=== PATIENT | female | born 1950 | race Two or more races ===

== ENCOUNTER 2024-05-27 19:15 | Emergency (ER) | payer OTHER ==
[~2024-05-27] VITALS: Ht 160 cm; Wt 52.2 kg
[2024-05-27] MEDS ORDERED: GLUMETZA1000 MG PO (19:28)
[2024-05-27] MEDS ORDERED: HUMULIN 70100 UNIT/2 IJ (19:28)
[2024-05-27] MEDS ORDERED: NEURONTIN800 MG PO (19:28)
[2024-05-27] MEDS ORDERED: SIMVASTATIN5 MG PO (19:29)
[2024-05-27] MEDS ORDERED: BENZONATATE 200 MG CAPSULE PO ONE (20:00)
[2024-05-27] MEDS ORDERED: CEFTRIAXONE SODIUM 1,000 MG VIAL IM ONE (20:00)
[2024-05-27] MEDS ORDERED: LEVALBUTEROL HCL 1.25 MG/3 ML SOLUTION IH ONE (20:00)
[2024-05-27] MEDS ORDERED: CEFTRIAXONE SODIUM 1,000 MG VIAL ONE (20:09)
[2024-05-27 21:53] LABS: HEMATOCRIT 45.7 % (36.0-45.00); HEMOGLOBIN 15.5 g/dL (12.0-15.00); MEAN CELL VOLUME 86.9 fL (80.00-100.00); MEAN CORPUSCULAR HEMOGLOBIN 29.5 pg (27.00-32.0); MEAN CORPUSCULAR HGB CONC 33.9 g/dl (32.0-36.0); PLATELET COUNT 193 K/uL (150-450); RED BLOOD COUNT 5.26 M/uL (4.00-6.00); RED CELL DISTRIBUTION WIDTH 14.3 % (11.5-14.5)
[2024-05-27 22:31] LABS: ALBUMIN 3.6 gm/dL (3.4-5.0); BILIRUBIN TOTAL 0.63 mg/dL (0.3-1.2); CALCIUM 9.5 mg/dL (8.5-10.1); CREATININE SERUM 0.75 mg/dL (0.55-1.02); GFR 76.17; POTASSIUM 3.83 mEq/L (3.5-5.1); TOTAL PROTEIN 7.6 gm/dL (6.4-8.2)
[2024-05-27] MEDS ORDERED: PEPCID AC20 MG PO (22:42)
[2024-05-27] MEDS ORDERED: LEVALBUTER0.63 MG/3 IH (22:42)
[2024-05-27] MEDS ORDERED: SINGULAIR10 MG PO (22:42)
[2024-05-27] MEDS ORDERED: BENZONATATE200 M1 PO (22:42)
== END 2024-05-27 22:46 | disposition home or self-care (01) ==
LOC: ER 19:17
PROVIDERS: General Practice
DX: R05.8 Other specified cough (principal); Z79.84 Long term (current) use of oral hypoglycemic drugs; E11.65 Type 2 diabetes mellitus with hyperglycemia; Z20.822 Contact with and (suspected) exposure to COVID-19